=== PATIENT | female | born 1945 | race Caucasian/White ===

== ENCOUNTER 2023-01-22 10:18 | Emergency (ER) | payer BC, MEDICARE ==
[2023-01-22 10:21] VITALS: BP 141/82; PULSE 84
[2023-01-22] MEDS: Erythromycin Base 0.5% Ophth Oint 3.5 GM Tube EYELF ONE (11:30)
== END 2023-01-22 11:40 | disposition home or self-care (01) ==
LOC: LL.ED 10:18
DX: H10.32 Unspecified acute conjunctivitis, left eye (principal); Z88.2 Allergy status to sulfonamides; Z88.8 Allergy status to other drugs, medicaments and biological substances
CPT/HCPCS: 99282; 99283; A9270-GY